=== PATIENT | female | born 1980 ===

== ENCOUNTER 2021-02-11 11:21 | Emergency (ER) | payer OTHER, SELFPAY ==
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
[2021-02-11 11:33] VITALS: BP 156/79; PULSE 75; RESP 16; TEMP 36.8; O2SAT 97; BMI 23.6
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
[2021-02-11 13:07] VITALS: BP 132/85; PULSE 72; RESP 16; O2SAT 100
== END 2021-02-11 13:09 | disposition home or self-care (01) ==
PROVIDERS: Emergency Provider Emergency Medicine
DX: S09.90XA Unspecified injury of head, initial encounter (principal); S00.81XA Abrasion of other part of head, initial encounter; W05.1XXA Fall from non-moving nonmotorized scooter, initial encounter
CPT/HCPCS: 70450; 70486; 99281

== ENCOUNTER 2021-06-15 10:30 | Outpatient (RCR) | payer OTHER, SELFPAY ==
--- NOTE | 2021-05-02 15:30 | ST.OPPOC ---
Physical, Occupational & Speech Therapy At [facility] Visit Care Team Role Provider Type SHUN Evangelista Family Provider Non-Staff Primary Care Provider Address: [address], [place], [address] Kirstie Garrett MD Attending Provider Non-Staff Referring Provider Address: Claude [address], [address] Speech Pathology Plan of Care Plan of Care Dates 05/02/2021 - 11/04/2021 Language Function Mildly impaired Cognitive Function Mildly impaired Findings Results of the CLQT indicate an overall mild cognitive deficit, secondary to a TBI. Ruthy presents with a moderate memory deficit and a mild deficit in attention and language. Deficits in memory and attention negatively impact Ruthy's ability to function at work and at home , including for safety purposes. Recommend speech therapy to increase memory and attention and provide compensatory strategies to improve Ruthy's ability to function in her personal and professional life, especially for safety purposes. Short Term Goals 1. Ruthy will independently use external compensatory strategies (e.g., memory notebook/ journal, checklists, item placement, etc.) across 2 environments as reported by patient and observed use of strategies during session by clinician. 2. Ruthy will recall 90% of steps in familiar routine with the use of internal memory aids (e. g., pneumonics, checklist steps, etc.) given verbal and visual cues across 2 sessions. Shape Hand Goals Ruthy will independently utilize internal and external memory strategies in her daily life. Electronically Signed by: CHERYL Viera 05/03/21 1643 Please Sign and Return: I have reviewed this Plan of Care and certify that the skilled therapy services above are required to meet the patient?s needs. Physician Signature Date Printed Name and Credentials Clinical Instructor Signature Printed Name and Credentials
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
--- NOTE | 2021-06-08 15:12 | ST-OP ANOTE ---
Physical, Occupational & Speech Therapy At [facility] Speech Therapy Note Patient did not show for scheduled appointment on 06/08/2021 at 14:30.
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
--- NOTE | 2021-06-20 14:52 | ST-OP ANOTE ---
Physical, Occupational & Speech Therapy At [facility] Speech Therapy Note Patient did not show for scheduled appointment on 06/20/2021 at 14:30.
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
== END 2021-08-08 09:30 ==
LOC: SP 10:30
PROVIDERS: Family Provider Nurse Practitioner Family; PCP Nurse Practitioner Family; Referring Provider Psychiatry & Neurology Neurology; Visit Provider Psychiatry & Neurology Neurology
DX: S06.9X1D Unspecified intracranial injury with loss of consciousness of 30 minutes or less, subsequent encounter (principal)
CPT/HCPCS: 92507; 92523